=== PATIENT | female | born 1960 | race Caucasian/White ===

== ENCOUNTER 2019-06-28 06:13 | Inpatient (IN) | payer OTHER ==
[~2019-06-28] VITALS: Ht 160 cm; Wt 49.5 kg
[~2019-06-28 06:13] MED LIST: CARI350T22 PO; GUAI-41 GT; HYDR8TAB46 PO; IPRA0.00 IN; LEVO750T2 PO; METH10T PO; PRED20TA2 PO; PRILOSEC; SOMA; ZOLP10TA6 PO; [UNRECOGNIZED DRUG - OTHER]
[2019-06-28] MEDS ORDERED: methylPREDNISolone SOD SUCC 125 MG/2 ML VL ONE (06:18)
[2019-06-28] MEDS ORDERED: ALBUTEROL SULF 2.5 MG/0.5ML(0.5%) NEB SOLN NEB ONE (06:30)
[2019-06-28] MEDS ORDERED: methylPREDNISolone SOD SUCC 125 MG/2 ML VL IV ONE (06:30)
[2019-06-28] MEDS ORDERED: MIDAZOLAM DRIP 50 mg/50mL 50 ML IV SCH (06:35)
[2019-06-28] MEDS ORDERED: SODIUM CHLORIDE 0.9% 1,000 ML IV ONE (06:43)
[2019-06-28] MEDS ORDERED: ETOMIDATE (2MG/ML) 20ML VIAL IV ONE (06:45)
[2019-06-28] MEDS ORDERED: SUCCINYLCHOLINE CHLORIDE 20 MG/ML 10ML VIAL IV ONE (06:45)
[2019-06-28 06:54] LABS: Hematocrit 40.6 % (36.0-46.0); Hemoglobin 13.1 g/dL (12.2-16.2); Mean Corpuscular Hemoglobin 30.6 pg (28.0-32.0); Mean Corpuscular Hgb Conc. 32.3 g/dL (32.0-36.0); Mean Corpuscular Volume 94.5 fL (80.0-100.0); Platelet Count (auto) 335 10^3/uL (140-450); Red Cell Distribution Width 14.3 % (11.8-14.3); White Blood Cell 10.7 10^3/uL (4.4-10.8)
[2019-06-28 07:03] LABS: Band Neutrophils % (manual) 0; Basophils % (manual) 0 (0.0-2.0); Blast Cells 0; Metamyelocytes % 0; Myelocytes % 0; Promyelocytes % 0; Reactive Lymphocytes 0
[2019-06-28 07:13] LABS: Albumin 3.6 g/dL (3.4-5.0); BUN/Creatinine Ratio 12.6; Calcium 8.5 mg/dL (8.5-10.1); Potassium 4.1 mmol/L (3.5-5.1)
[2019-06-28 07:17] LABS: Bilirubin, Total 0.2 mg/dL (0.2-1.0); Total Protein 7.5 g/dL (6.4-8.2)
[2019-06-28 07:26] LABS: Eosinophils % (manual) 21 (0-7); Lymphocytes % (manual) 37 (10.0-50.0); Monocytes % (manual) 13 (0-12)
[2019-06-28 07:32] LABS: INR 0.97 (0.9-1.15); Partial Thromboplastin Time 23.2 sec (23.64-32.05)
[2019-06-28] MEDS ORDERED: CARISOPRODOL 350 MG TAB ONE (09:29)
[2019-06-28] MEDS ORDERED: CARISOPRODOL 350 MG TAB PO ONE (09:30)
[2019-06-28] MEDS ORDERED: METHADONE HCL 10 MG TAB PO ONE (09:30)
[2019-06-28 10:35] VITALS: BP 107/80
[2019-06-28] MEDS ORDERED: HEPARIN DRIP/D5W 100UNITS/ML 250 ML IV SCH ×3 (11:42→11:59)
[2019-06-28] MEDS ORDERED: HEPARIN SODIUM (PORCINE) 5000 UNITS/ML 1ML VIAL IV ONE (11:45)
[2019-06-28] MEDS ORDERED: HEPARIN DRIP/D5W 100UNITS/ML 250 ML IV ONE (11:57)
[2019-06-28] MEDS ORDERED: AZITHROMYCIN 500MG/ 250ML 250 ML IV ONE (12:00)
[2019-06-28] MEDS ORDERED: NITROGLYCERIN 0.4 MG SL TAB SL PRN (12:00)
[2019-06-28] MEDS ORDERED: ACETAMINOPHEN 325 MG TAB PO PRN (12:00)
[2019-06-28] MEDS ORDERED: MORPHINE SULF INJ 2 MG/ML SYRINGE 1ML IV PRN (12:00)
[2019-06-28] MEDS ORDERED: CARISOPRODOL 350 MG TAB PO PRN (12:15)
[2019-06-28] MEDS ORDERED: ALBUTEROL SULF 2.5 MG/0.5ML(0.5%) NEB SOLN NEB PRN (12:15)
[2019-06-28] MEDS ORDERED: ASPirin 81 mg TAB PO ONE (12:15)
[2019-06-28] MEDS: HEPARIN DRIP/D5W 100UNITS/ML 250 ML IV SCH (12:15)
[2019-06-28 12:44] LABS: Partial Thromboplastin Time 22.2 sec (23.64-32.05)
[2019-06-28 13:00] VITALS: BP 93/60
[2019-06-28] MEDS: guaiFENesin 200 MG/10 ML UD GT SCH ×3 (13:19→23:37)
[2019-06-28] MEDS: SODIUM CHL 0.9% IV SCH ×2 (13:20→21:58)
[2019-06-28] MEDS: METHYLPREDNISOLONE SOD SUCC IV SCH ×2 (13:20→21:58)
[2019-06-28] MEDS: METHADONE HCL 10 MG TAB PO SCH ×2 (14:00→21:59)
[2019-06-28] MEDS: ALBUTEROL SULF HFA 90MCG INH 200DOSE IN SCH ×2 (14:30→21:42)
[2019-06-28 17:00] VITALS: BP 87/60
[2019-06-28 18:13] LABS: INR 1.02 (0.9-1.15); Partial Thromboplastin Time 52.2 sec (23.64-32.05)
[2019-06-28 19:14] LABS: Urine Bacteria NONE SEEN /hpf (None Seen); Urine Blood Negative /uL (Negative); Urine Specific Gravity 1.013 (1.001-1.035); Urine WBC <1 /hpf (0 - 5)
[2019-06-28] MEDS ORDERED: diphenhdrAMINE HCL 50 MG/1 ML VL IV ONE (19:30)
[2019-06-28] MEDS ORDERED: IOHEXOL 350 MG/ML 100ML IJ ONE (19:58)
[2019-06-28 20:00] VITALS: BP 101/68
[2019-06-28 22:00] VITALS: BP 97/60
[2019-06-28] MEDS ORDERED: ATORVASTATIN 20 MG TAB PO SCH (22:00)
[2019-06-29 01:06] LABS: INR 0.97 (0.9-1.15)
[2019-06-29] MEDS: METHYLPREDNISOLONE SOD SUCC IV SCH ×2 (04:45→13:02)
[2019-06-29] MEDS: SODIUM CHL 0.9% IV SCH ×2 (04:45→13:02)
[2019-06-29 05:00] VITALS: BP 87/52
[2019-06-29] MEDS: METHADONE HCL 10 MG TAB PO SCH (06:00)
[2019-06-29] MEDS: ALBUTEROL SULF HFA 90MCG INH 200DOSE IN SCH ×2 (06:10→14:05)
[2019-06-29] MEDS: guaiFENesin 200 MG/10 ML UD GT SCH ×2 (06:53→12:45)
[2019-06-29 09:00] VITALS: BP 114/61
[2019-06-29 09:15] LABS: INR 1.01 (0.9-1.15); Partial Thromboplastin Time 62.4 sec (23.64-32.05)
[2019-06-29] MEDS ORDERED: cefTRIAXone 1GM/50ML D5W 50 ML IV SCH (10:00)
[2019-06-29] MEDS ORDERED: PANTOPRAZOLE 40 MG TAB PO SCH (10:00)
[2019-06-29 11:43] LABS: Basophils # (auto) 0 10 ^3/uL (0-0.2); Basophils % (auto) 0.1 % (0.0-2.0); Eosinophils # (auto) 0 10 ^3/uL (0-0.8); Hematocrit 34.8 % (36.0-46.0); Hemoglobin 11.7 g/dL (12.2-16.2); Lymphocytes # (auto) 0.8 10 ^3/uL (0.4-5.4); Lymphocytes % (auto) 9.5 % (10.0-50.0); Mean Corpuscular Hemoglobin 31.1 pg (28.0-32.0); Mean Corpuscular Hgb Conc. 33.5 g/dL (32.0-36.0); Mean Corpuscular Volume 92.8 fL (80.0-100.0); Monocytes # (auto) 0.4 10 ^3/uL (0-1.3); Monocytes % (auto) 5.1 % (0.0-12.0); Neutrophils # (auto) 7.2 10 ^3/uL (1.6-8.6); Neutrophils % (auto) 85.3 % (37.0-80.0); Platelet Count (auto) 250 10^3/uL (140-450); Red Blood Cells 3.75 10^6/uL (4.0-5.20); White Blood Cell 8.4 10^3/uL (4.4-10.8)
[2019-06-29] MEDS: HEPARIN DRIP/D5W 100UNITS/ML 250 ML IV SCH (12:15)
[2019-06-29 13:00] VITALS: BP 114/70
[2019-06-29 15:08] VITALS: BP 114/70
== END 2019-06-29 16:05 | disposition home or self-care (01) | DRG 280 ==
LOC: ER 06:13 → EDBD 06:13 → TELE 06:14 → TELE-EAST 12:58 → TELE-CENTR 18:29
PROVIDERS: ADMIT Hospitalist; ATTEND Hospitalist
DX: I21.4 Non-ST elevation (NSTEMI) myocardial infarction (principal); J96.01 Acute respiratory failure with hypoxia; F11.20 Opioid dependence, uncomplicated; I42.0 Dilated cardiomyopathy; I50.20 Unspecified systolic (congestive) heart failure; J44.1 Chronic obstructive pulmonary disease with (acute) exacerbation; E11.9 Type 2 diabetes mellitus without complications; F17.210 Nicotine dependence, cigarettes, uncomplicated; F41.9 Anxiety disorder, unspecified; G89.29 Other chronic pain; K21.9 Gastro-esophageal reflux disease without esophagitis; Z66 Do not resuscitate; I11.0 Hypertensive heart disease with heart failure; I25.2 Old myocardial infarction; Z79.899 Other long term (current) drug therapy; Z03.818 Encounter for observation for suspected exposure to other biological agents ruled out
CPT/HCPCS: 36415; 71045; 71275; 80053; 81001; 82728; 83615; 83880; 84484; 85007; 85025; 85027; 85610; 85730; 87070; 87804; 87880; 93005; 94640; 94644; 94762; 99291; G0378; J0696